=== PATIENT | female | born 1955 | race Caucasian/White ===

== ENCOUNTER → 2017-10-09 | Outpatient (CLI) | payer SELFPAY ==
[~2017-10-09] MED LIST: AMIT10; CIPR500 PO; HYDACE5 PO; METF500C PO; METR500 PO; ONDA4 PO; TIZA4; TIZANADINE
[2017-10-12 11:29] LABS: HPV Genotype 16 Not Detected (NOTDET); HPV Genotype 18 Not Detected (NOTDET)
[2017-10-14 13:48] LABS: HPV High Risk Other Detected (NOTDET)
== END | disposition home or self-care (01) ==
LOC: OLS 13:52
PROVIDERS: Nurse Practitioner Women's Health
DX: Z12.4 Encounter for screening for malignant neoplasm of cervix (principal); Z91.89 Other specified personal risk factors, not elsewhere classified
CPT/HCPCS: 87624; G0123

== ENCOUNTER → 2018-01-07 | Outpatient (CLI) | payer SELFPAY | END | disposition home or self-care (01) | LOC: PLD 07:58 → LAB SHORT 07:58 | DX: N84.0 Polyp of corpus uteri (principal); N95.0 Postmenopausal bleeding | CPT/HCPCS: 88305 ==

== ENCOUNTER → 2019-08-23 | Outpatient (CLI) | payer SELFPAY ==
[2019-08-24 14:07] LABS: HPV 16 Negative (Negative); HPV 18 Negative (Negative); HPV OTHER HR TYPES Positive (Negative)
== END | disposition home or self-care (01) ==
LOC: LAB SHORT 11:27 → LAB 11:27
PROVIDERS: Nurse Practitioner Women's Health
DX: Z12.4 Encounter for screening for malignant neoplasm of cervix (principal); Z91.89 Other specified personal risk factors, not elsewhere classified
CPT/HCPCS: 87624; G0123

== ENCOUNTER 2022-05-29 09:15 | Day surgery (SDC) | payer MEDICARE ==
[2022-05-26 13:50] LABS: BASOPHILS ABSOLUTE AUTO 0.04 K/mm3 (0.00-0.23); BASOPHILS PERCENT AUTO 1 % (0-2); EOSINOPHILS ABSOLUTE AUTO 0.09 K/mm3 (0.00-0.68); EOSINOPHILS PERCENT AUTO 1 % (0-6); Hemoglobin 12.7 g/dL (11.5-16.0); IMMATURE GRAN ABSOLUTE AUTO 0.02 K/mm3 (0.00-0.10); IMMATURE GRAN PERCENT AUTO 0 % (0-1); LYMPHOCYTES ABSOLUTE AUTO 1.72 K/mm3 (0.84-5.20); LYMPHOCYTES PERCENT AUTO 25 % (21-46); MONOCYTES ABSOLUTE AUTO 0.44 K/mm3 (0.16-1.47); MONOCYTES PERCENT AUTO 7 % (4-13); Mean Corpuscular HGB 27.7 pg (26.0-34.0); Mean Corpuscular HGB Conc 32.6 g/dL (31.5-36.5); Mean Corpuscular Volume 85 fL (80-100); Mean Platelet Volume 9.7 fL (9.1-12.4); NEUTROPHILS ABSOLUTE AUTO 4.45 K/mm3 (1.96-9.15); NEUTROPHILS PERCENT AUTO 66 % (41-73); Platelet Count 292 K/mm3 (150-400); RDW Coefficient Variation 13.4 % (11.7-14.2); RDW Standard Deviation 41.7 fL (35.1-46.3); Red Blood Cell Count 4.58 M/mm3 (3.80-5.20); White Blood Cell Count 6.76 K/mm3 (4.00-11.30)
[~2022-05-29] VITALS: Ht 162.6 cm; Wt 65.7 kg
--- NOTE | 2022-05-29 09:29 | NUR ---
Ambulatory in Day Surgery History, Chart, Medications and Allergies reviewed before start of procedure. Pre-Op teaching done. Pt verbalizes understanding.
[2022-05-29] MEDS ORDERED: VITAMIN B-122000 MC1 PO (09:36)
[2022-05-29] MEDS ORDERED: VITAMIN D310 MC5 PO (09:37)
[2022-05-29] MEDS ORDERED: CHOLECALCIFEROL PO (09:39)
[2022-05-29] MEDS ORDERED: CALCIUM PO (09:39)
[2022-05-29] MEDS ORDERED: ZINC PO (09:39)
[2022-05-29] MEDS ORDERED: MAGNESIUM PO (09:39)
[2022-05-29] MEDS ORDERED: MULVITA PO (09:39)
[2022-05-29] MEDS ORDERED: PROBIOTIC1 EA13 PO (09:39)
[2022-05-29] MEDS ORDERED: MERIBIN5 MG PO (09:40)
--- NOTE | 2022-05-29 12:36 | NUR ---
05/29/22 1236 Idalmis Garland PATIENT'S LIP OBTAINED A SMALL LACERATION DURING INTUBATION. TOPICAL PETROLEUM JELLY APPLIED AND GAUZE PADDING PLACED OVER. SURGEON NOTIFIED.
--- NOTE | 2022-05-29 17:46 | NUR ---
SHIFT SUMMARY PT A&OX4, VSS/RA, SHIRLEY PO, WINTERS PATENT & DRAINING YELLOW URINE, STAT LOCK ON, OFF FLOOR. PAIN TREATED WITH PERC 5 MG, TYLENOL AND TORADOL. AMB SBA, UP TO CHAIR. S/P FRANCINE WATTERS HYSTER, 4 SITES CDI. WILL REPORT TO ONCOMING NOC RN.
[2022-05-30 04:19] LABS: BASOPHILS ABSOLUTE AUTO 0.02 K/mm3 (0.00-0.23); BASOPHILS PERCENT AUTO 0 % (0-2); EOSINOPHILS PERCENT AUTO 0 % (0-6); Hematocrit 34.7 % (33.0-51.0); Hemoglobin 11.5 g/dL (11.5-16.0); IMMATURE GRAN ABSOLUTE AUTO 0.03 K/mm3 (0.00-0.10); IMMATURE GRAN PERCENT AUTO 0 % (0-1); LYMPHOCYTES ABSOLUTE AUTO 1.72 K/mm3 (0.84-5.20); LYMPHOCYTES PERCENT AUTO 13 % (21-46); MONOCYTES ABSOLUTE AUTO 0.75 K/mm3 (0.16-1.47); MONOCYTES PERCENT AUTO 6 % (4-13); Mean Corpuscular HGB 27.9 pg (26.0-34.0); Mean Corpuscular HGB Conc 33.1 g/dL (31.5-36.5); Mean Corpuscular Volume 84 fL (80-100); Mean Platelet Volume 9.7 fL (9.1-12.4); NEUTROPHILS ABSOLUTE AUTO 10.42 K/mm3 (1.96-9.15); NEUTROPHILS PERCENT AUTO 81 % (41-73); Platelet Count 270 K/mm3 (150-400); RDW Coefficient Variation 13.2 % (11.7-14.2); RDW Standard Deviation 40.6 fL (35.1-46.3); Red Blood Cell Count 4.12 M/mm3 (3.80-5.20); White Blood Cell Count 12.94 K/mm3 (4.00-11.30)
--- NOTE | 2022-05-30 05:13 | NUR ---
SHIFT SUMMARY: PT IS VERY PLEASANT AND ENGAGING. RESTED COMFORTABLY T/O THE NIGHT IN BED. HOWEVER, PT REPORTS NOT GETTING A LOT OF SLEEP. WINTERS DRAINED WELL AND REMAINED PATENT T/O THE NIGHT. WINTERS WAS DC PER ORDER AND PT TOLERATED WELL. JARED PAD WAS CHANGED X2 T/O THE SHIFT WITH SMALL AMOUNTS OF BLOOD NOTED. PT AMBULATED WITH MINIMAL ASSISTANCE WHEN MOVING FROM CHAIR TO BED. TOLERATED WELL. PLANS TO DC HOME TODAY.
[2022-05-30] MEDS ORDERED: Percocet 5-3251 EACH PO (09:09)
[2022-05-30] MEDS ORDERED: PROM25 PO (09:10)
[2022-05-30] MEDS ORDERED: SIME80CH PO (09:10)
[2022-05-30] MEDS ORDERED: IBUP400 PO (09:11)
--- NOTE | 2022-05-30 10:45 | NUR ---
DISCHARGE POD 1 LAP HYSTERECTOMY, LAP SITES WNL. DENIES ABDOMINAL PAIN. TOLERATING REGULAR DIET, DENIES N/V. VOIDING WELL. AMBULATING WELL. DISCUSSED DISCHARGE INSTRUCTIONS & SENT WITH PATIENT. ESCORTED OUT VIA W/C.
== END 2022-05-30 11:00 | disposition home or self-care (01) ==
LOC: ORSCMMR 09:15 → ORD 11:15 → SURS 15:28 → ORSCMMR 05-30 11:00
PROVIDERS: Obstetrics & Gynecology
PROC: 0UT74ZZ Resection of Bilateral Fallopian Tubes, Percutaneous Endoscopic Approach (ICD-10-PCS; principal; 2022-05-29 11:15)
PROC: 0UT24ZZ Resection of Bilateral Ovaries, Percutaneous Endoscopic Approach (ICD-10-PCS; principal; 2022-05-29 11:15)
PROC: 0UT94ZZ Resection of Uterus, Percutaneous Endoscopic Approach (ICD-10-PCS; principal; 2022-05-29 11:15)
PROC: 8E0W4CZ Robotic Assisted Procedure of Trunk Region, Percutaneous Endoscopic Approach (ICD-10-PCS; principal; 2022-05-29 11:15)
DX: D25.9 Leiomyoma of uterus, unspecified (principal); R10.2 Pelvic and perineal pain; N84.0 Polyp of corpus uteri; N80.3 Endometriosis of pelvic peritoneum; N83.292 Other ovarian cyst, left side; Z87.891 Personal history of nicotine dependence
CPT/HCPCS: 58571; S2900; 36415; 85025; 86850; 86900; 86901; 88307; A9270; J0690; J1885; J2250; J2704; J3010; J7120

== ENCOUNTER 2023-06-02 09:03 | Day surgery (SDC) | payer MEDICARE ==
[~2023-06-02] VITALS: Ht 162.6 cm; Wt 60.9 kg
[~2023-06-02 09:03] MED LIST changes: +CALCIUM PO; +CHOLECALCIFEROL PO; +IBUP400 PO; +MAGNESIUM PO; +MERIBIN5 MG PO; +MULVITA PO; +PROBIOTIC1 EA13 PO; +PROM25 PO; +Percocet 5-3251 EACH PO; +SIME80CH PO; +VITAMIN B-122000 MC1 PO; +VITAMIN D310 MC5 PO; +ZINC PO
[2023-06-02] MEDS ORDERED: MELATONIN5 M1 PO (09:17)
[2023-06-02] MEDS ORDERED: ATOR20 PO (09:17)
[2023-06-02] MEDS ORDERED: TURMERIC500 M2 PO (09:18)
[2023-06-02] MEDS ORDERED: PROBIOTIC1 EA13 PO (09:19)
[2023-06-02] MEDS ORDERED: Vitamin D1000 UNI1 (09:30)
[2023-06-02 11:35] VITALS: BP 102/67
== END 2023-06-02 11:42 | disposition home or self-care (01) ==
LOC: ORSCSDS 09:03
PROVIDERS: Surgery
PROC: 0DBN8ZX Excision of Sigmoid Colon, Via Natural or Artificial Opening Endoscopic, Diagnostic (ICD-10-PCS; principal; 2023-06-02 10:15)
PROC: 0DBL8ZX Excision of Transverse Colon, Via Natural or Artificial Opening Endoscopic, Diagnostic (ICD-10-PCS; principal; 2023-06-02 10:15)
DX: Z12.11 Encounter for screening for malignant neoplasm of colon (principal); Z86.010 Personal history of colon polyps; D12.3 Benign neoplasm of transverse colon; K63.5 Polyp of colon; E78.5 Hyperlipidemia, unspecified; Z79.899 Other long term (current) drug therapy
CPT/HCPCS: 88305; J2704; J7120

== ENCOUNTER → 2023-09-16 | Outpatient (CLI) | payer MEDICARE ==
[~2023-09-16] MED LIST changes: +ATOR20 PO; +MELATONIN5 M1 PO; +TURMERIC500 M2 PO; +Vitamin D1000 UNI1
[2023-09-16 13:02] LABS: BASOPHILS ABSOLUTE AUTO 0.05 K/mm3 (0.00-0.23); BASOPHILS PERCENT AUTO 1 % (0-2); EOSINOPHILS ABSOLUTE AUTO 0.08 K/mm3 (0.00-0.68); EOSINOPHILS PERCENT AUTO 1 % (0-6); Hematocrit 40.5 % (33.0-51.0); Hemoglobin 13.2 g/dL (11.5-16.0); IMMATURE GRAN ABSOLUTE AUTO 0.02 K/mm3 (0.00-0.10); IMMATURE GRAN PERCENT AUTO 0 % (0-1); LYMPHOCYTES ABSOLUTE AUTO 2.17 K/mm3 (0.84-5.20); LYMPHOCYTES PERCENT AUTO 35 % (21-46); MONOCYTES ABSOLUTE AUTO 0.43 K/mm3 (0.16-1.47); MONOCYTES PERCENT AUTO 7 % (4-13); Mean Corpuscular HGB 27.8 pg (26.0-34.0); Mean Corpuscular HGB Conc 32.6 g/dL (31.5-36.5); Mean Corpuscular Volume 85 fL (80-100); Mean Platelet Volume 9.5 fL (9.1-12.4); NEUTROPHILS ABSOLUTE AUTO 3.41 K/mm3 (1.96-9.15); NEUTROPHILS PERCENT AUTO 55 % (41-73); Platelet Count 299 K/mm3 (150-400); RDW Coefficient Variation 13.3 % (11.7-14.2); RDW Standard Deviation 41.4 fL (35.1-46.3); Red Blood Cell Count 4.75 M/mm3 (3.80-5.20); White Blood Cell Count 6.16 K/mm3 (4.00-11.30)
[2023-09-16 13:19] LABS: Albumin, Blood 4.1 g/dL (3.4-5.0); Albumin/Globulin Ratio 1.2 (0.8-1.8); Bilirubin, Total 0.6 mg/dL (0.1-1.0); Calcium, Blood 9.2 mg/dL (8.5-10.1); Creatinine, Blood 0.91 mg/dL (0.40-1.00); Globulin, Blood 3.5 g/dL (2.2-4.0); Potassium, Blood 3.8 mmol/L (3.5-5.5); Total Protein, Blood 7.6 g/dL (6.4-8.2)
== END | disposition home or self-care (01) ==
LOC: LAB 12:54 → LAB SHORT 12:54
PROVIDERS: Physician Assistant Medical
DX: R07.9 Chest pain, unspecified (principal)
CPT/HCPCS: 80053; 83690; 84484; 85025; 85379